=== PATIENT | male | born 1980 | race Caucasian/White ===

== ENCOUNTER 2022-01-13 02:24 | Emergency (ER) | payer OTHER, MEDICAID ==
[~2022-01-13] VITALS: Ht 167.6 cm; Wt 72.6 kg
--- NOTE | 2022-01-13 02:25 | NUR ---
TAMAR SIMMONS TAKEN TO CHAIR C
[2022-01-13 02:30] VITALS: BP 142/81
--- NOTE | 2022-01-13 02:38 | NUR ---
PATIENT BIB [facility] DEPT. PATIENT EXAMINED BY DR. KAY. PATIENT MEDICALLY CLEARED AND RELEASED IN CUSTODY IN STABLE CONDITION. ORIGINAL PRE-BOOK FORM GIVEN TO OFFICER TEGAN, #[id number].
== END 2022-01-13 02:38 ==
LOC: MED 02:24
DX: Z02.89 Encounter for other administrative examinations (principal); V89.2XXA Person injured in unspecified motor-vehicle accident, traffic, initial encounter; Y93.89 Activity, other specified; Y92.410 Unspecified street and highway as the place of occurrence of the external cause; Y99.8 Other external cause status
CPT/HCPCS: 99283